=== PATIENT | male | born 1950 | race Caucasian/White ===

== ENCOUNTER 2025-02-26 15:07 | Emergency (ER) | payer MEDICARE, OTHER, SELFPAY ==
[2025-02-26 15:09] VITALS: BP 131/89; PULSE 67; RESP 18; TEMP 37.1; O2SAT 94; BMI 32.2
--- NOTE | 2025-02-26 16:08 | CT_ITS ---
PROCEDURE: BRAIN/HEAD WITHOUT CONTRAST 02/26/2025 REASON FOR EXAM: DOUBLE VISION TECHNIQUE: BRAIN/HEAD WITHOUT CONTRAST Coronal and Sagittal reconstruction series were provided. One or more dose reduction techniques were used (e.g., Automated exposure control, adjustment of the mA and/or kV according to patient size, use of iterative reconstruction technique. RADIATION DOSE SUMMARY: CTDlvol: 44.99 mGy DLP: 779.24 mGycm COMPARISON: None. FINDINGS: Brain: No intra-axial or extra-axial hemorrhage. No mass, mass effect or midline shift. CSF Spaces: Mild prominence of ventricles and mild periventricular chronic small-vessel ischemic disease. Orbits: Artificial right eye lens right left globe otherwise unremarkable no preseptal or postseptal thickening or fat stranding. Sinuses/Mastoids: Mucous retention cysts left maxillary sinus partially imaged. Major sinuses appear clear. Mastoid air cells are clear. Bones: No suspicious bony process. Multiple calcific densities in the superficial scalp possibly epidermal later CT/Brain/Head without Contrast IMPRESSION: No acute process detected. Reading [facility]
--- NOTE | 2025-02-26 16:08 | EDS_ITS ---
HPI History of Present Illness Chief Complaint: Vision Prob Narrative Narrative: 74-year-old male presents with reported double vision that lasted for 20 minutes. He states that he was at the opera, watching it and around 2:20 PM he had a 20-minute episode where the faces of the actors/stingers were doubled. He will close 1 I and would be single. He would close the opposite eye and it would be single as well. No temporal pain. He denies any paresthesia of his arms or legs, or any other symptoms. Symptoms resolved after about 20 minutes. [facility] Medical History (Updated 02/26/25 @ 17:50 by Vincenzo Snow MD) Depression High cholesterol Allergy/AdvReac Type Severity Reaction Status Date / Time No Known Allergies Allergy Verified 02/26/25 15:12 Social History Smoking Status: Never smoker ROS ROS ED ROS Narrative Review of systems positive for double vision for 20 minutes. No paresthesias. No temporal pain, no chest pain or shortness of breath, no exacerbating or alleviating symptoms. Symptoms resolved spontaneously. EXAM Physical Exam Narrative Exam Narrative: Afebrile. Vital signs noted. Nontoxic-appearing. Cardiovascular examination reveals a regular rate and rhythm. Lungs are clear to auscultation bilaterally. Abdomen is soft and nontender with positive bowel sounds, no guarding or rebound. Neurological examination is nonfocal, nonlateralizing. PERRL, EOMI, no entrapment or lag. Const Vital Signs: 02/26/25 15:09 Temperature 98.8 F Temperature Source Oral Pulse Rate 67 Respiratory Rate 18 Blood Pressure 131/89 H Blood Pressure Mean 103 Pulse Ox 94 Oxygen Delivery Method Room Air MDM MDM MDM Narrative Medical decision making narrative: Differential diagnosis includes but not limited to transient double vision versus hyperglycemia versus hypoglycemia versus TIA versus atypical migraine. The symptoms over his period and obtained. NIH stroke scale close 0. I will obtain a CT of the brain as well as baseline laboratories in the form of CBC and CMP. I reviewed his laboratory work and he has a normal white count of 7.0 with hemoglobin normal at 13.9, hematocrit 39.5, platelet count 200. Sodium 136 and potassium 4.1 with BUN slightly elevated at 21 which I think is nonspecific and creatinine 1.18. I reviewed the radiology report of the CT of the brain and there is no acute process, he does have an artificial lens on the right eye after cataract surgery failed. I discussed patient with Dr. Colbert with ophthalmology. While something neurological is more in the differential, he agrees that it would not be transient. Was not felt that he requires observation or admission at this time. Through shared decision making and discussion with the patient, he is from out of town, and would like to be discharged. 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 He was told that he should seek medical attention if his double vision returns. Disposition is discharged home in stable condition. History & Record Review Discussion w/independent historian: Patient Lab Data Attestation: I reviewed the patient's lab results. Labs: Laboratory Results - last 24 hr 02/26/25 16:45 WBC 7.0 RBC 4.49 L Hgb 13.9 Hct 39.5 L MCV 88.0 MCH 31.0 MCHC 35.2 RDW Std Deviation 39.4 RDW Coeff of Alber 12.3 Plt Count 200 MPV 10.0 Immature Gran % (Auto) 0.400 Neut % (Auto) 51.9 Lymph % (Auto) 27.6 Webster % (Auto) 15.8 H Eos % (Auto) 3.9 Baso % (Auto) 0.4 Absolute Neuts (auto) 3.6 Absolute Lymphs (auto) 1.92 Nucleated RBC % 0 Sodium 136 Potassium 4.1 Chloride 105 Carbon Dioxide 20.2 L Anion Gap 11 BUN 21 H Creatinine 1.18 Estim Creat Clear Calc 58.91 Est GFR (MDRD) Non-Af 64 BUN/Creatinine Ratio 18.1 Glucose 95 Calcium 9.0 Total Bilirubin 0.29 AST 24 ALT 21 Alkaline Phosphatase 53 Total Protein 6.5 Albumin 3.9 Globulin 2.6 Albumin/Globulin Ratio 1.5 Radiography Diagnostic Testing: Clinical Impression(s) from Imaging Studies Brain CT 02/26/25 16:08 IMPRESSION: No acute process detected. Reading [facility] Management Discussion w/another healthcare provider: [employer] (Dr. Colbert, ophthalmology) Discharge Plan Triage Chief Complaint: Vision Prob ED Provider: Vincenzo Snow Dx/Rx/DC Orders Clinical Impression: Transient diplopia Instructions: ED Double Vision (Diplopia) Primary Care Provider: MASON HAND Referrals: MASON HAND [Other] Print Language: Nigerian
[2025-02-26 17:19] LABS: Hematocrit 39.5 % (40-54); Hemoglobin 13.9 g/dL (13.0-16.5); Immature Granulocytes Count 0.030 X10^3/uL (0.0-0.0); Mean Corp Hgb Conc 35.2 g/dL (32-36); Mean Corpuscular Volume 88.0 fL (80-94); Mean Platelet Vol. 10.0 fl (6.2-12.0); NRBC Flagged by Analyzer 0 % (0-5); Platelet Count 200 K/mm3 (150-450); RBC Distribution Width CV 12.3 % (11.6-14.6); RBC Distribution Width SD 39.4 fl (35.1-43.9); Red Blood Count 4.49 M/mm3 (4.6-6.2); White Blood Count 7.0 K/mm3 (4.4-11.0)
[2025-02-26 17:38] LABS: AST(SGOT) 24 U/L (<=37); Alanine Aminotransfer ALT/SGPT 21 U/L (<=46); Albumin, Serum 3.9 g/dL (3.4-4.8); Alkaline Phosphatase 53 U/L (40-129); Anion Gap 11 (5-15); BUN 21 mg/dL (4-19); BUN/Creat Ratio 18.1 RATIO (10-20); Calcium,Total 9.0 mg/dL (7.6-11.0); Carbon Dioxide 20.2 mmol/L (21.0-32.0); Chloride 105 mmol/L (98-108); Estimated Creatinine Clearance 58.91 ml/min (50-250); Globulin 2.6 g/dL (2.2-4.2); Glucose 95 mg/dL (70-99); Potassium 4.1 mmol/L (3.3-5.1)
[2025-02-26 18:11] VITALS: BP 121/62; PULSE 80; RESP 14; TEMP 36.6; O2SAT 100
== END 2025-02-26 18:12 | disposition home or self-care (01) ==
PROVIDERS: Emergency Provider Emergency Medicine; Visit Provider Emergency Medicine
DX: H53.2 Diplopia (principal); E78.00 Pure hypercholesterolemia, unspecified
CPT/HCPCS: 70450; 80053; 85025; 99283; A4216